=== PATIENT | female | born 2005 | race Caucasian/White ===

== ENCOUNTER 2023-09-12 21:19 | Inpatient (IN) | payer MEDICAID, OTHER ==
[~2023-09-12] VITALS: Ht 160 cm; Wt 68.7 kg
[2023-09-12] MEDS: LORazepam 1 MG TABLET PO ONE (22:28)
[2023-09-12 23:12] LABS: PH,URINE DRUG SCREEN 6.5 (5.0-8.0)
[2023-09-12 23:16] LABS: ALCOHOL, URINE DRUG SCREEN NEGATIVE (NEGATIVE); AMPHET/METH SCREEN,URINE NEGATIVE (NEGATIVE); BARBITURATE SCREEN, URINE NEGATIVE (NEGATIVE); BENZODIAZEPINES SCREEN,URINE NEGATIVE (NEGATIVE); CANNABINOID SCREEN,URINE NEGATIVE (NEGATIVE); COCAINE SCREEN,URINE NEGATIVE (NEGATIVE); METHADONE SCREEN, URINE NEGATIVE (NEGATIVE); OPIATE SCREEN,URINE NEGATIVE (NEGATIVE); PHENCYCLIDINE SCREEN,URINE NEGATIVE (NEGATIVE)
[2023-09-12 23:20] LABS: BASOPHILS % (AUTO) 0.5 % (0.0-2.0); MONOCYTES # (AUTO) 0.6 K/uL (0.1-1.0); MONOCYTES % (AUTO) 5.5 % (2.0-9.0); NEUTROPHILS # (AUTO) 4.7 K/uL (1.8-7.7)
[2023-09-12 23:22] LABS: EOSINOPHILS % (AUTO) 0.7 % (1.0-6.0); HEMATOCRIT 42.3 % (36-46); HEMOGLOBIN 14.5 g/dL (12.0-16.0); MEAN CORPUSCULAR HGB CONC 34.4 G/dL (31.0-37.0); MEAN CORPUSCULAR VOLUME 90 fL (80-100); NEUTROPHILS % (AUTO) 45.3 % (40.0-70.0); PLATELET COUNT (AUTO) 302 K/uL (150-450); RED BLOOD CELL COUNT(AUTO) 4.69 MIL/uL (4.00-5.20); WHITE BLOOD COUNT (AUTO) 10.4 K/uL (4.5-11.0)
[2023-09-12 23:30] LABS: ANION GAP 18 mmol/L (8-16); CALCIUM, TOTAL 9.4 mg/dL (8.8-10.5); CARBON DIOXIDE 20 mmol/L (22-29); CHLORIDE 109 mmol/L (98-107); CREATININE 0.64 mg/dL (0.60-1.30); GLOMERULAR FILTR. RATE CALC > 60 mL/min (>60); GLUCOSE,RANDOM 97 mg/dL (70-110); POTASSIUM 3.9 mmol/L (3.5-5.1); SODIUM SERUM 147 mmol/L (136-145); UREA NITROGEN, BLOOD 7 mg/dL (7-18)
[2023-09-12 23:31] LABS: ALCOHOL, BLOOD (SERUM) 278 mg/dL (0-10)
[2023-09-12 23:36] LABS: COVID AG,FIA SOURCE NASAL SWAB
[2023-09-12 23:36] LABS: ALANINE AMINOTRANSFERASE 20 U/L (12-78); ALBUMIN 4.2 g/dL (3.4-5.0); ALKALINE PHOSPHATASE 83 U/L (46-116); ASPARTATE AMINOTRANSFERASE 19 U/L (15-37); BILIRUBIN,TOTAL 0.3 mg/dL (0.1-1.0); TOTAL PROTEIN, SERUM 8.1 g/dL (6.4-8.2)
[2023-09-12] MEDS: DiphenhydrAMINE HCL 50 MG CAPSULE PO ONE (23:52)
[2023-09-12] MEDS: HALOPERIDOL 5 MG TABLET PO ONE (23:52)
[2023-09-12 23:54] LABS: SARS-COV2 (COVID) ANTIGEN,FIA Negative (Negative)
[2023-09-13] MEDS ORDERED: HALOPERIDOL 5 MG TABLET PO PRN (05:00)
[2023-09-13] MEDS ORDERED: ZOLPIDEM TARTRATE 10 MG TABLET PO PRN (05:00)
[2023-09-13] MEDS ORDERED: LORazepam 2 MG TABLET PO PRN (05:00)
[2023-09-13 05:44] VITALS: BP 112/61; PULSE 81; RESP 16; TEMP 97.8; O2SAT 96
[2023-09-13] MEDS ORDERED: PNEUMOCOCCAL VACCINE POLYVALENT 0.5 ML SYRINGE [PPSV23] IM. ONE (05:45)
[2023-09-13 06:00] VITALS: BP 110/64; PULSE 76; RESP 16; TEMP 97.1; O2SAT 99
[2023-09-13 07:02] VITALS: BP 122/70; PULSE 76; RESP 16; TEMP 97.5; O2SAT 97
[2023-09-13 08:13] VITALS: BP 106/73; PULSE 84; RESP 16; TEMP 97.3; O2SAT 98
[2023-09-13 10:05] LABS: HEMOGLOBIN A1C 4.8 % (3.8-5.6)
[2023-09-13 10:14] LABS: CHOL/HDL RATIO 3.1 (3.9-5.7); CHOLESTEROL 201 mg/dL (131-200); HDL CHOLESTEROL 64 mg/dL (40-60); LDL CHOL (CALC.) 115 mg/dL (0-130); THYROID STIMULATING HORMONE 0.89 uIU/mL (0.36-3.74); TRIGLYCERIDES 112 mg/dL (15-150)
[2023-09-13] MEDS ORDERED: BENZOCAINE/MENTHOL LOZENGE PO PRN (18:15)
[2023-09-13] MEDS ORDERED: DOCUSATE SODIUM 100 MG CAPSULE PO PRN (18:15)
[2023-09-13] MEDS ORDERED: ALBUTEROL SULFATE HFA 90 MCG/PUFF 8 GM INHALER IH PRN (18:15)
[2023-09-13] MEDS ORDERED: IBUPROFEN 600 MG TABLET PO PRN (18:15)
[2023-09-13] MEDS ORDERED: MAGNESIUM HYDROXIDE SUSPENSION 30 ML UDCUP PO PRN (18:15)
[2023-09-13] MEDS ORDERED: BACITRACIN 28 GM OINTMENT TP PRN (18:15)
[2023-09-13] MEDS ORDERED: ACETAMINOPHEN 325 MG TABLET PO PRN (18:15)
[2023-09-13] MEDS ORDERED: LOPERAMIDE HCL 2 MG CAPSULE PO PRN (18:15)
[2023-09-13] MEDS ORDERED: CloNIDine HCL 0.1 MG TABLET PO PRN (18:15)
[2023-09-13] MEDS ORDERED: OMEPRAZOLE 20 MG CAPSULE PO PRN (18:15)
[2023-09-13] MEDS ORDERED: ONDANSETRON HCL 4 MG TABLET PO PRN (18:15)
[2023-09-13] MEDS ORDERED: MAG HYDROX/ALUMINUM HYD/SIMETH ES 30 ML SUSPENSION UDCUP PO PRN (18:15)
[2023-09-13] MEDS ORDERED: PETROLATUM,WHITE 28 GM JELLY TP PRN (18:15)
[2023-09-13 20:19] VITALS: BP 123/71; PULSE 90; RESP 18; TEMP 97.8; O2SAT 95
[2023-09-13 21:00] VITALS: BP 123/71; PULSE 90; RESP 16; TEMP 97.8; O2SAT 95
[2023-09-14 01:19] VITALS: BP 99/60; PULSE 113; RESP 16; TEMP 97.9; O2SAT 98
[2023-09-14 07:00] VITALS: BP 100/70; PULSE 100; RESP 16; TEMP 97.9; O2SAT 98
[2023-09-14] MEDS: PRENATAL NO.137/IRON/FOLIC ACID TABLET PO SCH (09:00)
[2023-09-14 09:07] VITALS: BP 114/70; PULSE 108; RESP 17; TEMP 96.5; O2SAT 96
[2023-09-14 09:09] VITALS: BP 114/70; PULSE 98; RESP 17; TEMP 97.5; O2SAT 98
== END 2023-09-14 12:55 | disposition home or self-care (01) | DRG 566 ==
LOC: EMS 21:19 → B3A 09-13 00:21
PROVIDERS: ADMIT Psychiatry & Neurology Psychiatry; ATTEND Psychiatry & Neurology Psychiatry
DX: O99.341 Other mental disorders complicating pregnancy, first trimester (principal); R45.851 Suicidal ideations; F32.9 Major depressive disorder, single episode, unspecified; O99.311 Alcohol use complicating pregnancy, first trimester; F10.129 Alcohol abuse with intoxication, unspecified; Z20.822 Contact with and (suspected) exposure to COVID-19; O99.611 Diseases of the digestive system complicating pregnancy, first trimester; Z81.8 Family history of other mental and behavioral disorders; Z3A.00 Weeks of gestation of pregnancy not specified
CPT/HCPCS: 80053; 80061; 80307; 83036; 84443; 84703; 85025; 99285; G0480